=== PATIENT | female | born 1975 | race Caucasian/White ===

== ENCOUNTER 2022-10-04 08:10 | Outpatient (REF) | payer OTHER, SELFPAY ==
[2022-10-04 10:09] LABS: Anion Gap 15 (12-20); Blood Urea Nitrogen 14 mg/dL (9-16); Calcium 9.2 mg/dL (8.4-10.2); Carbon Dioxide 27 mmol/L (22-29); Chloride 104 mmol/L (96-108); Estimated Glomerular Filt Rate > 60; Glucose Random 130 mg/dL (60-115); Potassium 3.8 mmol/L (3.3-5.1); Sodium 142 mmol/L (135-145)
[2022-10-04 10:14] LABS: VBG pCO2 47 mmHg; VBG pH 7.35 (7.32-7.43)
[2022-10-04 10:15] LABS: VBG Base Excess 0.6 mmol/L; VBG HCO3 26 mmol/L (22-26); VBG pO2 40 mmHg; Venous Blood Gas Refer to POC result
[2022-10-04 10:56] LABS: Erythrocyte Sedimentation Rate 18 MM/HR (0-20)
[2022-10-07 17:37] LABS: IgA 254 mg/dL (47-310); IgG 1110 mg/dL (600-1640); IgM 100 mg/dL (50-300)
== END 2022-10-04 08:11 | disposition home or self-care (01) ==
LOC: HO.LAB 08:10
PROVIDERS: PCP Pediatrics; Visit Provider Hospitalist
DX: J45.909 Unspecified asthma, uncomplicated (principal); R06.00 Dyspnea, unspecified; G47.33 Obstructive sleep apnea (adult) (pediatric); Z91.09 Other allergy status, other than to drugs and biological substances
CPT/HCPCS: 36415; 80048; 82784; 82785; 82803; 85652; 86003

== ENCOUNTER → 2022-12-30 08:51 | Outpatient (REF) | payer OTHER, SELFPAY | LOC: HO.SL 08:51 | PROVIDERS: PCP Pediatrics; Visit Provider Hospitalist | DX: G47.33 Obstructive sleep apnea (adult) (pediatric) (principal) | CPT/HCPCS: 95806 ==

== ENCOUNTER → 2023-01-03 09:04 | Outpatient (BNVA) | payer OTHER, SELFPAY | PROVIDERS: PCP Pediatrics; Visit Provider Hospitalist | DX: G47.33 Obstructive sleep apnea (adult) (pediatric) (principal); R06.00 Dyspnea, unspecified; J45.909 Unspecified asthma, uncomplicated; J44.9 Chronic obstructive pulmonary disease, unspecified ==